=== PATIENT | female | born 1970 | race Caucasian/White ===

== ENCOUNTER → 2017-03-14 | Emergency (ER) | payer MEDICARE, MEDICAID ==
[~2017-03-14] MED LIST: DILANTIN100 MG PO; LYRICA 50MG CAP50 MG PO; MOBIC7.5 MG PO; MYRBETRIQ50 MG PO; NORCO 5-325 MG1 TAB PO; PRILOSEC20 M1 PO; VESICARE10 MG PO
== END | disposition disaster alternative care site (69) ==
LOC: GAMB 17:55
DX: R56.9 Unspecified convulsions (principal)

== ENCOUNTER → 2017-03-15 | Emergency (ER) | payer MEDICARE, MEDICAID | END | disposition disaster alternative care site (69) | LOC: GAMB 17:55 | DX: R56.9 Unspecified convulsions (principal) ==